=== PATIENT | male | born 1995 | race Caucasian/White ===

== ENCOUNTER 2022-06-13 07:13 | Outpatient (CLI) | payer OTHER | END 2022-06-13 07:20 | disposition home or self-care (01) | LOC: LAB 07:13 | PROVIDERS: ATTEND Internal Medicine Hematology & Oncology | DX: D50.8 Other iron deficiency anemias (principal); R79.9 Abnormal finding of blood chemistry, unspecified; I10 Essential (primary) hypertension; R74.02 Elevation of levels of lactic acid dehydrogenase [LDH]; K76.89 Other specified diseases of liver; D72.818 Other decreased white blood cell count; D51.3 Other dietary vitamin B12 deficiency anemia; E23.6 Other disorders of pituitary gland; D35.2 Benign neoplasm of pituitary gland; E22.1 Hyperprolactinemia ==

== ENCOUNTER → 2022-08-09 09:04 | Outpatient (CLI) | payer OTHER | END | disposition home or self-care (01) | LOC: LAB 09:04 | PROVIDERS: ATTEND Internal Medicine Hematology & Oncology | DX: E22.1 Hyperprolactinemia (principal); E03.8 Other specified hypothyroidism; D50.8 Other iron deficiency anemias; R79.9 Abnormal finding of blood chemistry, unspecified; I10 Essential (primary) hypertension; R74.02 Elevation of levels of lactic acid dehydrogenase [LDH]; K76.89 Other specified diseases of liver; D63.8 Anemia in other chronic diseases classified elsewhere; D47.2 Monoclonal gammopathy; C90.00 Multiple myeloma not having achieved remission; D72.818 Other decreased white blood cell count; D51.3 Other dietary vitamin B12 deficiency anemia; E23.6 Other disorders of pituitary gland; D35.2 Benign neoplasm of pituitary gland; D68.9 Coagulation defect, unspecified; D64.9 Anemia, unspecified ==

== ENCOUNTER → 2022-10-02 07:26 | Outpatient (CLI) | payer OTHER | END | disposition home or self-care (01) | LOC: LAB 07:26 | PROVIDERS: ATTEND Internal Medicine Endocrinology, Diabetes & Metabolism | DX: E22.1 Hyperprolactinemia (principal); D50.8 Other iron deficiency anemias; R79.9 Abnormal finding of blood chemistry, unspecified; I10 Essential (primary) hypertension; R74.02 Elevation of levels of lactic acid dehydrogenase [LDH]; K76.89 Other specified diseases of liver; D72.818 Other decreased white blood cell count; D51.3 Other dietary vitamin B12 deficiency anemia; E23.6 Other disorders of pituitary gland; D35.2 Benign neoplasm of pituitary gland ==

== ENCOUNTER 2023-02-20 08:16 | Outpatient (CLI) | payer OTHER | END 2023-02-20 08:23 | disposition home or self-care (01) | LOC: LAB 08:16 | PROVIDERS: ATTEND Internal Medicine Hematology & Oncology | DX: D35.2 Benign neoplasm of pituitary gland (principal) ==

== ENCOUNTER 2023-03-13 07:22 | Outpatient (CLI) | payer OTHER ==
[2023-03-13 08:20] LABS: HEMATOCRIT 43.5 % (39.0-48.0); HEMOGLOBIN 14.5 g/dL (13-16.00); MEAN CELL VOLUME 85.4 fL (80.0-100.00); MEAN CORPUSCULAR HEMOGLOBIN 28.4 pg (27.00-32.0); MEAN CORPUSCULAR HGB CONC 33.2 g/dl (32.0-36.0); PLATELET COUNT 174 K/uL (150-450); RED CELL DISTRIBUTION WIDTH 13.5 % (11.5-14.5)
[2023-03-13 09:22] LABS: % SATURACION 19.2 % (20-50); ALBUMIN 4.2 gm/dL (3.4-5.0); BILIRUBIN TOTAL 0.45 mg/dL (0.3-1.2); CREATININE SERUM 1.1 mg/dL (0.70-1.30); FERRITIN 155.2 NG/ML (26-388); GFR 79.71; GLOBULINA 3.4 G/DL (2.4-3.5); POTASSIUM 3.81 mEq/L (3.5-5.1); TOTAL PROTEIN 7.6 gm/dL (6.4-8.2); TSH 1.52 uIU/mL (0.358-3.74)
[2023-03-13 11:12] LABS: FOLIC ACID > 20.00 ng/ml (4.78-20)
[2023-03-13 11:13] LABS: VITAMIN D3 25 HYDROXY 132.32 ng/ml (30-120)
[2023-03-13 12:12] LABS: MANUAL PLATELET COUNT 186
[2023-03-13 12:14] LABS: PLATELET ESTIMATE NORMAL (NORMAL)
== END 2023-03-13 07:23 | disposition home or self-care (01) ==
LOC: LAB 07:22
PROVIDERS: ATTEND Internal Medicine Hematology & Oncology
DX: D50.8 Other iron deficiency anemias (principal); R79.9 Abnormal finding of blood chemistry, unspecified; I10 Essential (primary) hypertension; K76.89 Other specified diseases of liver; E55.9 Vitamin D deficiency, unspecified; E03.8 Other specified hypothyroidism; E22.1 Hyperprolactinemia; D72.818 Other decreased white blood cell count; D51.3 Other dietary vitamin B12 deficiency anemia; D57.3 Sickle-cell trait; E23.6 Other disorders of pituitary gland; D35.2 Benign neoplasm of pituitary gland; U07.1 COVID-19; U09.9 Post COVID-19 condition, unspecified

== ENCOUNTER 2024-01-30 09:33 | Outpatient (CLI) | payer OTHER ==
[2024-01-30 10:36] LABS: HEMATOCRIT 42.7 % (39.0-48.0); HEMOGLOBIN 14.9 g/dL (13-16.00); MEAN CELL VOLUME 84.3 fL (80.0-100.00); MEAN CORPUSCULAR HEMOGLOBIN 29.4 pg (27.00-32.0); MEAN CORPUSCULAR HGB CONC 34.9 g/dl (32.0-36.0); PLATELET COUNT 193 K/uL (150-450); RED BLOOD COUNT 5.07 M/uL (4.00-6.00); RED CELL DISTRIBUTION WIDTH 13.6 % (11.5-14.5)
[2024-01-30 11:22] LABS: % SATURACION 16.3 % (20-50); ALBUMIN 4.6 gm/dL (3.4-5.0); BILIRUBIN TOTAL 0.56 mg/dL (0.3-1.2); CALCIUM 9.6 mg/dL (8.5-10.1); CREATININE SERUM 1.07 mg/dL (0.70-1.30); FERRITIN 193.9 NG/ML (26-388); GFR 81.71; GLOBULINA 3.6 G/DL (2.4-3.5); POTASSIUM 4.48 mEq/L (3.5-5.1); T4 FREE 0.9 NG/ML (0.76-1.46); TOTAL PROTEIN 8.2 gm/dL (6.4-8.2); TSH 1.78 uIU/mL (0.358-3.74)
[2024-01-30 13:33] LABS: MANUAL PLATELET COUNT 400
[2024-01-30 13:34] LABS: PLATELET ESTIMATE NORMAL (NORMAL)
[2024-01-30 14:23] LABS: FOLIC ACID 14.9 ng/ml (4.78-20); VITAMIN D3 25 HYDROXY 57.16 ng/ml (30-120)
== END 2024-01-30 09:39 | disposition home or self-care (01) ==
LOC: LAB 09:33
PROVIDERS: ATTEND Internal Medicine Hematology & Oncology
DX: D72.818 Other decreased white blood cell count (principal); D51.3 Other dietary vitamin B12 deficiency anemia; D57.3 Sickle-cell trait; E23.6 Other disorders of pituitary gland; D35.2 Benign neoplasm of pituitary gland; U07.1 COVID-19; U09.9 Post COVID-19 condition, unspecified; D50.8 Other iron deficiency anemias; R79.9 Abnormal finding of blood chemistry, unspecified; I10 Essential (primary) hypertension; R74.02 Elevation of levels of lactic acid dehydrogenase [LDH]; K76.89 Other specified diseases of liver; E55.9 Vitamin D deficiency, unspecified; E03.8 Other specified hypothyroidism; E22.1 Hyperprolactinemia

== ENCOUNTER 2024-09-11 07:12 | Outpatient (CLI) | payer OTHER ==
[2024-09-11 08:19] LABS: ALBUMIN 4.5 gm/dL (3.4-5.0); BILIRUBIN TOTAL 0.73 mg/dL (0.3-1.2); CALCIUM 9.9 mg/dL (8.5-10.1); CREATININE SERUM 1.3 mg/dL (0.70-1.30); GFR 64.82; POTASSIUM 5.25 mEq/L (3.5-5.1); TOTAL PROTEIN 7.5 gm/dL (6.4-8.2)
== END 2024-09-11 11:34 | disposition home or self-care (01) ==
LOC: LAB 07:12
PROVIDERS: ATTEND Internal Medicine Endocrinology, Diabetes & Metabolism
DX: E23.1 Drug-induced hypopituitarism (principal); E22.1 Hyperprolactinemia

== ENCOUNTER → 2024-10-20 06:28 | Outpatient (CLI) | payer OTHER ==
[2024-10-20 07:18] LABS: EOS # 0.03 (0.04-0.54); EOS % 1.5 % (0.7-7.0); HEMATOCRIT 40.6 % (40.1-51.0); HEMOGLOBIN 13.6 g/dL (13.7-17.5); LYMPH # 0.62 (1.18-3.74); LYMPH % 30.7 % (19.3-53.1); MEAN CORPUSCULAR HEMOGLOBIN 27.6 pg (25.6-32.2); MONO # 0.37 (0.24-0.82); NEUT # 0.98 (1.56-6.13); NEUT % 48.5 % (34.0-71.1); PLATELET COUNT 199 K/uL (163-369); RED BLOOD COUNT 4.92 M/uL (4.63-6.08); RED CELL DISTRIBUTION WIDTH 12.3 % (11.6-14.4)
[2024-10-20 08:15] LABS: % SATURACION 27.9 % (20-50); ALBUMIN 4.2 gm/dL (3.4-5.0); BILIRUBIN TOTAL 0.74 mg/dL (0.3-1.2); CREATININE SERUM 1.14 mg/dL (0.70-1.30); FERRITIN 178.2 NG/ML (26-388); GFR 75.42; GLOBULINA 3.1 G/DL (2.4-3.5); POTASSIUM 3.99 mEq/L (3.5-5.1); T4 FREE 0.98 NG/ML (0.76-1.46); TOTAL PROTEIN 7.3 gm/dL (6.4-8.2); TSH 1.53 uIU/mL (0.358-3.74)
[2024-10-20 08:42] LABS: MONO % 18.3 % (4.7-12.5)
[2024-10-20 10:31] LABS: FOLIC ACID > 20.00 ng/ml (4.78-20); VITAMIN D3 25 HYDROXY 45.53 ng/ml (30-120)
== END | disposition home or self-care (01) ==
LOC: LAB 06:28
PROVIDERS: ATTEND Internal Medicine Hematology & Oncology
DX: D72.818 Other decreased white blood cell count (principal); D51.3 Other dietary vitamin B12 deficiency anemia; D57.3 Sickle-cell trait; E23.6 Other disorders of pituitary gland; D35.2 Benign neoplasm of pituitary gland; U07.1 COVID-19; D50.8 Other iron deficiency anemias; R79.9 Abnormal finding of blood chemistry, unspecified; I10 Essential (primary) hypertension; R74.02 Elevation of levels of lactic acid dehydrogenase [LDH]; K76.89 Other specified diseases of liver; E55.9 Vitamin D deficiency, unspecified; E03.8 Other specified hypothyroidism; E22.1 Hyperprolactinemia

== ENCOUNTER → 2024-11-04 07:34 | Outpatient (CLI) | payer OTHER ==
[2024-11-04 08:00] LABS: BASO % 0.9 % (0.1-1.2); EOS # 0.01 (0.04-0.54); EOS % 0.5 % (0.7-7.0); HEMATOCRIT 39.3 % (40.1-51.0); HEMOGLOBIN 13.4 g/dL (13.7-17.5); LYMPH # 0.81 (1.18-3.74); LYMPH % 36.8 % (19.3-53.1); MEAN CORPUSCULAR HEMOGLOBIN 28.1 pg (25.6-32.2); MONO # 0.24 (0.24-0.82); MONO % 10.9 % (4.7-12.5); NEUT # 1.12 (1.56-6.13); NEUT % 50.9 % (34.0-71.1); PLATELET COUNT 182 K/uL (163-369); RED BLOOD COUNT 4.77 M/uL (4.63-6.08); RED CELL DISTRIBUTION WIDTH 12.9 % (11.6-14.4)
[2024-11-04 08:44] LABS: FERRITIN 168.3 NG/ML (26-388); TSH 1.48 uIU/mL (0.358-3.74)
[2024-11-04 08:46] LABS: ALBUMIN 4.3 gm/dL (3.4-5.0); BILIRUBIN TOTAL 0.48 mg/dL (0.3-1.2); CALCIUM 9.4 mg/dL (8.5-10.1); CREATININE SERUM 1.14 mg/dL (0.70-1.30); GFR 75.42; GLOBULINA 3.1 G/DL (2.4-3.5); POTASSIUM 4.81 mEq/L (3.5-5.1); T4 FREE 0.91 NG/ML (0.76-1.46); TOTAL PROTEIN 7.4 gm/dL (6.4-8.2)
[2024-11-04 13:12] LABS: FOLIC ACID > 20.00 ng/ml (4.78-20)
[2024-11-04 13:55] LABS: MANUAL PLATELET COUNT 196
== END | disposition home or self-care (01) ==
LOC: LAB 07:34
PROVIDERS: ATTEND Internal Medicine Hematology & Oncology
DX: D72.818 Other decreased white blood cell count (principal); D51.3 Other dietary vitamin B12 deficiency anemia; D57.3 Sickle-cell trait; E23.6 Other disorders of pituitary gland; D35.2 Benign neoplasm of pituitary gland; U07.1 COVID-19; U09.9 Post COVID-19 condition, unspecified; D50.8 Other iron deficiency anemias; R79.9 Abnormal finding of blood chemistry, unspecified; I10 Essential (primary) hypertension; R74.02 Elevation of levels of lactic acid dehydrogenase [LDH]; K76.89 Other specified diseases of liver; E55.9 Vitamin D deficiency, unspecified; E03.8 Other specified hypothyroidism; E22.1 Hyperprolactinemia